=== PATIENT | female | born 1965 | race Asian ===

== ENCOUNTER 2016-12-19 08:13 | Outpatient (CLI) | payer OTHER ==
[~2016-12-19 08:13] MED LIST: AMITRIPTYLIN50 MG PO; BENZ100C8 PO; CARAFATE1 GM PO; CLONAZEP ODT2 MG PO; GLIM4TAB PO; HYDR25TA60 PO; HYDROXYZ HCL50 MG PO; JANUVIA100 MG PO; LISI20TA11 PO; MECL25TA84 PO; MELOXICAM7.5 MG PO; METFORMIN ER1000 MG PO; MICRO-K10 MEQ PO; NEURONTIN800 MG PO; NEXIUM40 M1 PO
== END 2016-12-19 20:14 | disposition home or self-care (01) ==
LOC: LABW 08:13
DX: R19.7 Diarrhea, unspecified (principal)
CPT/HCPCS: 82272; 87045; 87205; 87328; 87329; 87493; 87798; 87899

== ENCOUNTER 2018-04-11 12:01 | Emergency (ER) | payer OTHER ==
[~2018-04-11] VITALS: Ht 170.2 cm; Wt 107.0 kg
[2018-04-11 13:05] LABS: PLATELET COUNT 276 K/uL (152-353)
[2018-04-11 13:48] LABS: POTASSIUM 5.3 mmol/L (3.6-5.2); SODIUM 127 mmol/L (136-145)
[2018-04-11 19:00] VITALS: TEMP 98.2
[2018-04-11 19:03] LABS: POTASSIUM 4.3 mmol/L (3.6-5.2)
[2018-04-11 22:03] VITALS: BP 140/90
== END 2018-04-11 22:03 | disposition home or self-care (01) ==
LOC: ED 12:01
PROVIDERS: Specialist
DX: E86.9 Volume depletion, unspecified (principal); E11.65 Type 2 diabetes mellitus with hyperglycemia; K76.89 Other specified diseases of liver; K52.1 Toxic gastroenteritis and colitis; R00.0 Tachycardia, unspecified; T36.8X5A Adverse effect of other systemic antibiotics, initial encounter; Y92.89 Other specified places as the place of occurrence of the external cause
CPT/HCPCS: 36415; 80048; 80053; 81002; 82550; 82553; 83735; 84100; 84484; 85027; 85379; 85610; 93005; 96361; 96365; 99284; J1815; J3411; J3490; Q9963

== ENCOUNTER 2018-09-03 08:55 | Outpatient (CLI) | payer OTHER | END 2018-09-03 21:20 | disposition home or self-care (01) | LOC: RESP 08:55 | DX: G60.8 Other hereditary and idiopathic neuropathies (principal); M79.631 Pain in right forearm | CPT/HCPCS: 95885; 95910 ==